=== PATIENT | female | born 1995 | race Two or more races ===

== ENCOUNTER → 2017-09-25 14:51 | Outpatient (CLI) | payer MEDICAID ==
[~2017-09-25 14:51] MED LIST: HYDROCODON-ACE1 EAC7 PO; IBUPROFEN600 MG PO; PRENATAL COMPLE1 TAB PO
[2017-09-25 15:48] LABS: APPEARANCE CLEAR (CLEAR); BILIRUBIN NEGATIVE (NEGATIVE); COLOR YELLOW (YELLOW); GLUCOSE NEGATIVE (NEGATIVE); KETONE NEGATIVE (NEGATIVE); NITRITE NEGATIVE (NEGATIVE); PROTEIN NEGATIVE (NEGATIVE); UROBILINOGEN NORMAL (NORMAL)
[2017-09-25 15:49] LABS: BACTERIA MANY /hpf (NONE SEEN); EPITHELIAL CELLS 0-5 /hpf (0-5); MUCUS <1+ /lpf (NONE SEEN); RED CELLS - URINE OCC /hpf (0-5); WHITE CELLS - URINE 0-5 /hpf (0-5)
[2017-12-03 12:01] VITALS: BMI 24.3
== END | disposition home or self-care (01) ==
LOC: D.LDO 14:51
PROVIDERS: Obstetrics & Gynecology
DX: O26.893 Other specified pregnancy related conditions, third trimester (principal); Z3A.33 33 weeks gestation of pregnancy; M54.5 Low back pain; R51 Headache

== ENCOUNTER 2017-11-05 06:57 | Inpatient (IN) | payer MEDICAID ==
[~2017-11-05] VITALS: Ht 160 cm; Wt 70.3 kg
--- NOTE | ~2017-11-05 | DS ---
PATIENT:UMANG HENRY I :[birth year] MEDICAL RECORD: [id number] DISCHARGE SUMMARY ADMISSION DATE: 11/05/17 DISCHARGE DATE: 11/06/17 HISTORY: The patient was admitted on 11/05/2017. A 22-year-old at 39 weeks and 1 day, admitted in active labor. The patient was noted to be O positive, group B strep negative, and rubella immune. PAST MEDICAL HISTORY: The patient reported no significant past medical history. PAST SURGICAL HISTORY: Significant for breast surgery. ALLERGIES: The patient reported no allergies. MEDICATIONS: Included vitamins. FAMILY HISTORY: The patient reported family history significant for parent with cardiovascular disease. SOCIAL HISTORY: The patient reported social history negative times 3. PHYSICAL EXAMINATION: VITAL SIGNS: On initial assessment, vital signs were stable. The patient was afebrile and normotensive. LUNGS: Clear to auscultation. CARDIOVASCULAR: Regular rate and rhythm. PELVIC: Uterus was appropriately sized and appropriately tender. EXTREMITIES: Lower extremities were free of Homans' sign, erythema, or swelling. Admit hemoglobin was found to be 10.2 with platelet count of 368. ASSESSMENT AND PLAN: At that time, term intrauterine , in active labor. Admit AROM when appropriate and Pitocin augmentation as needed. The patient with a category 1 tracing at admission. AROM was performed with clear fluid. The patient progressed to the second stage of labor and then normal spontaneous vaginal delivery. Delivery note is as on the chart. The patient did well overnight on day #0, tolerating p.o. pain meds and general diet, ambulating and voiding freely. On the morning of day #1, the patient continued to do well. Vital signs were stable. The patient was afebrile. Hemoglobin was appropriate. Uterus was infraumbilical and nontender. The patient reported minimal lochia. The patient was discharged home on day #1 with instructions to follow up in 4 weeks. TRANSINT:[id number] Voice Confirmation ID: [id number] DOCUMENT ID: [id number] RIVAS SIFUENTES MD at 1754 CC: [id number] DICTATION DATE: 12/02/171752 MED SURG RN: 12/02/172011 DIS IN 11/06/17 [place] [id number] [place] [id number]
[2017-11-05] MEDS ORDERED: PRENATAL COMPLE1 TAB PO (07:28)
[2017-11-05 07:29] VITALS: BP 114/73; Ht 160 cm; Wt 70.3 kg
[2017-11-05 08:54] LABS: HEMATOCRIT 31.6 % (36.0-48.0); HEMOGLOBIN 10.2 g/dL (12-16); MCH 26.2 pg (26.0-34.0); MCHC 32.3 g/dL (31.0-37.0); MCV 81.2 fL (80.0-100.0); MEAN PLATELET VOLUME 9.6 fL (7.4-10.4); RBC 3.89 10x6/uL (4.00-5.40); RDW 15.4 % (11.5-14.5); WBC 8.3 10x3/uL (4.8-10.8)
[2017-11-05 19:15] VITALS: BP 127/79
[2017-11-06 07:28] LABS: RAPID PLASMA REAGIN Non Reactive (Non Reactive)
[2017-11-06] MEDS ORDERED: HYDROCODON-ACE1 EAC7 PO (10:18)
[2017-11-06] MEDS ORDERED: IBUPROFEN600 MG PO (10:19)
== END 2017-11-06 17:00 | disposition home or self-care (01) | DRG 775 ==
LOC: D.LDO 06:57 → D.LD 07:13
PROVIDERS: Obstetrics & Gynecology
PROC: 10E0XZZ Delivery of Products of Conception, External Approach (ICD-10-PCS; principal; 2017-11-05)
DX: O80 Encounter for full-term uncomplicated delivery (principal); Z3A.39 39 weeks gestation of pregnancy; Z37.0 Single live birth

== ENCOUNTER 2017-12-03 11:57 | Emergency (ER) | payer MEDICAID ==
[~2017-12-03] VITALS: Ht 160 cm; Wt 62.3 kg
[2017-12-03 12:01] VITALS: Ht 160 cm; Wt 62.3 kg
[2017-12-03 12:34] LABS: BASOPHILS 0.3 % (0-2); EOSINOPHILS 1.7 % (0-7); HEMATOCRIT 33.6 % (36.0-48.0); HEMOGLOBIN 10.8 g/dL (12-16); IMMATURE GRANULOCYTES 0.2 % (0-5); LYMPHOCYTES 19.9 % (15-50); MCH 25.9 pg (26.0-34.0); MCHC 32.1 g/dL (31.0-37.0); MCV 80.6 fL (80.0-100.0); MEAN PLATELET VOLUME 10.3 fL (7.4-10.4); MONOCYTES 7.8 % (2-11); NEUTROPHILS 70.1 % (40-80); PLATELET COUNT 307 10x3/uL (130-400); RBC 4.17 10x6/uL (4.00-5.40); RDW 15.3 % (11.5-14.5); WBC 6.6 10x3/uL (4.8-10.8)
[2017-12-03 12:49] LABS: ALBUMIN 3.4 g/dL (3.4-5.0); ALKALINE PHOSPHATASE 107 U/L (46-116); ALT (SGPT) 19 U/L (10-68); BILIRUBIN - TOTAL 0.27 mg/dL (0.2-1.3); CALC OSMOLALITY 280 mosm/kg (275-300); CALCIUM 8.8 mg/dL (8.5-10.1); CARBON DIOXIDE 29.3 mmol/L (21.0-32.0); CHLORIDE - SERUM 106 mmol/L (98-107); CREATININE - SERUM 0.6 mg/dL (0.6-1.3); GLUCOSE 97 mg/dL (74-106); POTASSIUM - SERUM 3.7 mmol/L (3.5-5.1); PROTEIN - SERUM 7.6 g/dL (6.4-8.2); SODIUM 142 mmol/L (136-145); UREA NITROGEN 6 mg/dL (7-18); eGFR NON AFRICAN AMERICAN > 90 mL/min (90-120)
[2017-12-03 14:45] VITALS: BP 102/65
== END 2017-12-03 14:51 | disposition home or self-care (01) ==
LOC: D.ER 11:57
PROVIDERS: Family Medicine
DX: F53 Mental and behavioral disorders associated with the puerperium, not elsewhere classified (principal)

== ENCOUNTER 2019-02-21 12:34 | Emergency (ER) | payer MEDICAID ==
[~2019-02-21] VITALS: Ht 160 cm; Wt 59.1 kg
[2019-02-21 12:43] VITALS: Ht 160 cm; Wt 59.1 kg
[2019-02-21 13:27] LABS: APPEARANCE SL CLDY (CLEAR); BILIRUBIN NEGATIVE (NEGATIVE); COLOR YELLOW (YELLOW); GLUCOSE NEGATIVE (NEGATIVE); KETONE MODERATE mg/dL (NEGATIVE); NITRITE NEGATIVE (NEGATIVE); PROTEIN NEGATIVE (NEGATIVE); SPECIFIC GRAVITY 1.015 (1.005-1.020)
[2019-02-21 13:28] LABS: BACTERIA MODERATE /hpf (NEGATIVE); EPITHELIAL CELLS 0-5 /hpf (0-5); MUCUS <1+ /lpf (NONE SEEN); RED CELLS - URINE 0-5 /hpf (0-5)
[2019-02-21 13:46] LABS: BASOPHILS 0.1 % (0-2); EOSINOPHILS 0.2 % (0-7); HEMATOCRIT 34.2 % (36.0-48.0); HEMOGLOBIN 11.1 g/dL (12-16); IMMATURE GRANULOCYTES 0.2 % (0-5); LYMPHOCYTES 8.7 % (15-50); MCH 27.5 pg (26.0-34.0); MCHC 32.5 g/dL (31.0-37.0); MCV 84.9 fL (80.0-100.0); MONOCYTES 4.9 % (2-11); NEUTROPHILS 85.9 % (40-80); PLATELET COUNT 291 10x3/uL (130-400); RBC 4.03 10x6/uL (4.00-5.40); RDW 13.9 % (11.5-14.5); WBC 8.5 10x3/uL (4.8-10.8)
[2019-02-21 13:48] LABS: CALC OSMOLALITY 269 mosm/kg (275-300); CALCIUM 8.2 mg/dL (8.5-10.1); CARBON DIOXIDE 26.3 mmol/L (21.0-32.0); CHLORIDE - SERUM 102 mmol/L (98-107); CREATININE - SERUM 0.5 mg/dL (0.6-1.3); GLUCOSE 101 mg/dL (74-106); POTASSIUM - SERUM 3.6 mmol/L (3.5-5.1); SODIUM 136 mmol/L (136-145); UREA NITROGEN 7 mg/dL (7-18); eGFR NON AFRICAN AMERICAN > 90 mL/min (90-120)
[2019-02-21 13:49] LABS: HCG SERUM POSITIVE (NEGATIVE)
[2019-02-21 13:55] LABS: ALBUMIN 2.9 g/dL (3.4-5.0); ALKALINE PHOSPHATASE 69 U/L (46-116); ALT (SGPT) 20 U/L (10-68); LIPASE 163 U/L (73-393); PROTEIN - SERUM 7.1 g/dL (6.4-8.2)
[2019-02-21 14:10] LABS: UDS - AMPHET NEGATIVE QUAL (NEGATIVE); UDS - BARB NEGATIVE QUAL (NEGATIVE); UDS - BENZO NEGATIVE QUAL (NEGATIVE); UDS - COCAINE NEGATIVE QUAL (NEGATIVE); UDS - OPIATE POSITIVE QUAL (NEGATIVE); UDS - PCP NEGATIVE QUAL (NEGATIVE); UDS - THC NEGATIVE QUAL (NEGATIVE)
[2019-02-21] MEDS ORDERED: MACROBID100 MG PO (15:53)
[2019-02-21 15:56] VITALS: BP 115/68
[2019-03-01 18:07] LABS: AEROBE ID Final report (())
== END 2019-02-21 15:57 | disposition home or self-care (01) ==
LOC: D.ER 12:34
PROVIDERS: Family Medicine
DX: O23.40 Unspecified infection of urinary tract in pregnancy, unspecified trimester (principal)

== ENCOUNTER 2019-07-06 19:57 | Inpatient (IN) | payer MEDICAID ==
[~2019-07-06] VITALS: Ht 160 cm; Wt 71.7 kg
[~2019-07-06 19:57] MED LIST changes: +MACROBID100 MG PO
[2019-07-06 21:30] VITALS: BP 132/81; Ht 160 cm; Wt 71.7 kg
[2019-07-06 22:05] LABS: MCV 74.2 fL (80.0-100.0); MEAN PLATELET VOLUME 10.6 fL (7.4-10.4); RBC 3.91 10x6/uL (4.00-5.40); RDW 15.2 % (11.5-14.5)
[2019-07-06 22:07] LABS: BILIRUBIN NEGATIVE (NEGATIVE); GLUCOSE NEGATIVE (NEGATIVE); KETONE NEGATIVE (NEGATIVE); NITRITE NEGATIVE (NEGATIVE); UROBILINOGEN NORMAL (NORMAL)
--- NOTE | 2019-07-07 12:55 | NUR ---
TO ROOM FOR POST STAY, ORIENTED TO ROOM, CALL LIGHT WITHIN REACH, LUNCH TRAY GIVEN. INFORMED WILL BE BACK SOON FOR ASSESSMENT AND VITAL SIGNS. NAT[facility] C[facility] SUPPLIES PLACED IN BATHROOM
[2019-07-07 13:33] VITALS: BP 128/81
--- NOTE | 2019-07-07 14:49 | NUR ---
sitting up in bed, resting quietly, holding infant, pt teaching on bottle feeding, denies having been up to br since transfer, 50% regular diet consumed, fundus firm, u/-2
--- NOTE | 2019-07-07 15:38 | NUR ---
PT VASCULAR TECHNICIAN LIGHT. C/O ABDOMINAL CRAMPING OF "4" ON 0-10 PAIN SCALE. TORADOL 10 MG GIVEN PO ORDERED. PT INSTRUCTED ON MED. VERBALIZES UNDERSTANDING. PT STATES VOIDED SECOND TIME. UNMEASURED AMOUNT NOTED.
--- NOTE | 2019-07-07 16:31 | NUR ---
feeling relief from cramping, sitting up in bed holding infant, fundus firm. lochia small. no needs expressed
--- NOTE | 2019-07-07 17:54 | NUR ---
restinq quietly in room, cousin at bedside, no needs voiced at this time
--- NOTE | 2019-07-07 19:50 | NUR ---
PT FEEDING INFANT AT THIS TIME, INFORMED PT THAT I WILL COME BACK SHORTLY THEN TO DO ASSESSMENT, PT VERBALIZES UNDERSTANDING, DENIES NEEDS OR PAIN AT THIS ITME, FRIEND AT BEDSIDE
[2019-07-07 20:39] VITALS: BP 142/84
--- NOTE | 2019-07-07 20:39 | NUR ---
ASSESSMENT PER FLOW SHEET, VS OBTAINED, SALINE LOCK IN RIGHT HAND INTACT WITH NO REDNESS OR EDEMA, COVERED SALINE LOCK FOR PT TO TAKE SHOWER AFTER ASSESSMENT, FF, ML, U/2, PT REPORTS FLATUS, NO BM, VOIDING WITH NO DIFFICULTY, AND SCANT VAG BLEEDING NOTED WITH NO CLOTS, PT RATES CRAMPING -11/06, WILL ADM TORADOL WHEN DUE, PT INST ON AND REPORTS USING NATALIYA CARE INST EARLIER, TOWELS AND WASH CLOTHS PROVIDED, PT INST TO USE CALL LIGHT IN BR FOR ANY ASSISTANCE, VERBALIZES UNDERSTANDING, DENIES FURTHER NEEDS AT THIS TIME
--- NOTE | 2019-07-07 21:45 | NUR ---
PT IN BED TALKING ON CELL PHONE, ADM TORADOL PO PER MD ORDERS, SEE EMAR, PT DENIES FURTHER NEEDS, BED IN LOW POSITION, SIDE RAILS X 2, CALL LIGHT IN REACH
--- NOTE | 2019-07-07 22:33 | NUR ---
PT BOTTLE FEEDING , RATES CRAMPING 3-08/07, STATES "IT'S GETTING BETTER", PT REQUESTED AND SERVED DR BARNES, DENIES FURTHER NEEDS, BED IN LOW POSITION, SIDE RAILS X 2, CALL LIGHT IN REACH
--- NOTE | 2019-07-08 00:21 | NUR ---
PT RESTING WITH EYES CLOSED, RESP QUIET, NO DISTRESS NOTED, LEFT UNDISTURBED AT THIS TIME
--- NOTE | 2019-07-08 00:29 | NUR ---
PT PLANT TECH LIGHT, PT C/O CRAMPING, ADM TYLENOL PO PER MD ORDERS, SEE EMAR, PT REQUESTED AND PROVIDED WARM BLANKET, DENIES FURTHER NEEDS AT THIS TIME
--- NOTE | 2019-07-08 01:30 | NUR ---
PT RESTING WITH EYES CLOSED, RESP QUIET, NO DISTRESS NOTED, LEFT UNDISTURBED AT THIS TIME
--- NOTE | 2019-07-08 03:21 | NUR ---
PT RESTING WITH EYES CLOSED, RESP QUIET, NO DISTRESS NOTED, LEFT UNDISTURBED AT THIS TIME
--- NOTE | 2019-07-08 05:24 | NUR ---
PT RESTING WITH EYES CLOSED, RESP QUIET, NO DISTRESS NOTED, LEFT UNDISTURBED AT THIS TIME
[2019-07-08 06:21] LABS: BASOPHILS 0.2 % (0-2); EOSINOPHILS 0.3 % (0-7); HEMATOCRIT 29.9 % (36.0-48.0); HEMOGLOBIN 9.2 g/dL (12-16); IMMATURE GRANULOCYTES 0.3 % (0-5); LYMPHOCYTES 23.1 % (15-50); MCH 22.8 pg (26.0-34.0); MCHC 30.8 g/dL (31.0-37.0); MONOCYTES 5.8 % (2-11); NEUTROPHILS 70.3 % (40-80); PLATELET COUNT 295 10x3/uL (130-400); RBC 4.04 10x6/uL (4.00-5.40); RDW 15.3 % (11.5-14.5); WBC 8.7 10x3/uL (4.8-10.8)
[2019-07-08 07:04] VITALS: BP 108/70
[2019-07-08 07:13] LABS: RAPID PLASMA REAGIN Non Reactive (Non Reactive)
--- NOTE | 2019-07-08 07:15 | NUR ---
ASSESSMENT DONE- SITTING UP IN BED HOLDING INFANT. VERBAL REWSPONSES APPRO TO QUESTIONS. BEARD AT WILL. DENIES NEEDS. ICE WATER GIVEN. FUNDUS U2/FIRM. SCANT LOCHIA NOTED ON PAD.
--- NOTE | 2019-07-08 07:16 | NUR ---
REQUESTING IV SALINE LOCK BE REMOVED.
--- NOTE | 2019-07-08 08:30 | NUR ---
DR ORR HERE TO SEE PT- VERBAL ORDER TO D/C SALINE LOCK RECEIVED.
--- NOTE | 2019-07-08 08:36 | NUR ---
SALINE LOCK REMOVED WITH CATH TIP INTACT- PRESSURE HELD. BANDAIDE ON.
--- NOTE | 2019-07-08 09:40 | NUR ---
PT SITTING UP TALKING WITH VISITORS. DENIES NEEDS.
--- NOTE | 2019-07-08 09:40 | NUR ---
TALKING WITH VISITORS- DENIES NEEDS.
--- NOTE | 2019-07-08 11:09 | NUR ---
REQUESTING WARM BLANKET AND TORADOL FOR PAIN. CO CRAMPING -RATES PAIN A 5 ON SCALE OF 0-10. MED GIVEN.
--- NOTE | 2019-07-08 11:52 | NUR ---
STATES THAT PAIN IS BETTER-RATES PAIN DOWN TO 2 ON SCALE OF 0-10. DENIES OTHER NEEDS.
--- NOTE | 2019-07-08 15:30 | NUR ---
RINGS CALL LIGHT AND ASKING IF SHE CAN BE DISCHARGED HOME THIS AFTERNOON IF BABY IS ABLE TO DISCHARGE. STATES THAT SHE WANTS TO GO HOME IF POSSIBLE. WILL INFORM DR ORR.
--- NOTE | 2019-07-08 16:17 | NUR ---
DR ORR RETURNS CALL AND STATES THAT HE WILL BE AVAILABLE TO DISCHARGE PT HOME IF CAN GO HOME THIS EVENING.
--- NOTE | 2019-07-08 18:28 | NUR ---
DISCHARGE INST VERBAL AND WRITTEN GIVEN. NO PRESCRIPTIONS GIVEN- BUT WAS INFORMED THAT MAY TAKE MOTRIN DIRECTED ON LABEL FOR PAIN. PFW POST INST GIVEN. SEE ALSO SIGNED DISCHARGE INST SHEET. PT HEALTH SUMMARY GIVEN. PT DENIES ANY QUESTIONS.
--- NOTE | 2019-07-08 19:00 | NUR ---
PT DISCHARGED HOME. TRANSPORTED OFF UNIT VIA W/C PER Jovani DIGGS RN.
--- NOTE | 2019-07-09 17:04 | MORECARE ---
CASE MANAGEMENT DISCHARGE SUMMARY PATIENT: UMANG HENRY I UNIT: [id number] ADM DATE: 07/06/19 AGE: 24 : 97 SEX: F ROOM/BED: D.1257 AUTHOR: OSMANY FLORES PHYSICIAN: REFERRING PHYSICIAN: CHAN ORR MD DATE OF SERVICE: 07/09/19 Discharge Plan Patient Name: UMANG HENRY Facility: [facility]:[place] : 1995 Planned Disposition: Home Anticipated Discharge Date: 07/08/19 Discharge Date: 07/08/2019 Expected LOS: 2 Initial Reviewer: [email or web address] Initial Review Date: 07/06/2019 Generated: 07/09/19 6:04 pm Patient Name: UMANG HENRY Page [phone] at 1704 All edits/amendments must be made on the electronic document DICTATION DATE: 07/09/191703 ADVANCED MANUFACTURING ASSOCIATE: JELANI 07/09/191703 RPT#: [id number] DC DATE:07/08/19 STATUS: DIS IN [facility] [address] [place] [address] END OF REPORT
== END 2019-07-08 19:00 | disposition home or self-care (01) | DRG 807 ==
LOC: D.LD 19:57
PROVIDERS: ADMIT Obstetrics & Gynecology; ATTEND Obstetrics & Gynecology
PROC: 10E0XZZ Delivery of Products of Conception, External Approach (ICD-10-PCS; principal; 2019-07-07)
PROC: 0HQ9XZZ Repair Perineum Skin, External Approach (ICD-10-PCS; 2019-07-07)
DX: O70.0 First degree perineal laceration during delivery (principal); Z37.0 Single live birth; Z3A.39 39 weeks gestation of pregnancy

== ENCOUNTER 2020-07-12 18:37 | Emergency (ER) | payer MEDICAID ==
[~2020-07-12] VITALS: Ht 160 cm; Wt 65.9 kg
[2020-07-12 19:09] VITALS: Ht 160 cm; Wt 65.9 kg
[2020-07-12 20:20] LABS: BASOPHILS 0.5 % (0-2); EOSINOPHILS 0.8 % (0-7); HEMATOCRIT 37.7 % (36.0-48.0); HEMOGLOBIN 12.3 g/dL (12-16); IMMATURE GRANULOCYTES 0.2 % (0-5); LYMPHOCYTES 34.1 % (15-50); MCH 25.6 pg (26.0-34.0); MCHC 32.6 g/dL (31.0-37.0); MCV 78.5 fL (80.0-100.0); MEAN PLATELET VOLUME 9.2 fL (7.4-10.4); MONOCYTES 6.8 % (2-11); NEUTROPHIL ABS# 3.72 10x3/uL (1.56-6.13); NEUTROPHILS 57.6 % (40-80); PLATELET COUNT 330 10x3/uL (130-400); RDW 14.7 % (11.5-14.5); WBC 6.5 10x3/uL (4.8-10.8)
[2020-07-12 20:37] LABS: CALC OSMOLALITY 272 mosm/kg (275-300); CALCIUM 9.1 mg/dL (8.5-10.1); CARBON DIOXIDE 25.8 mmol/L (21.0-32.0); CHLORIDE - SERUM 103 mmol/L (98-107); CREATININE - SERUM 0.7 mg/dL (0.6-1.3); GLUCOSE 92 mg/dL (74-106); POTASSIUM - SERUM 3.2 mmol/L (3.5-5.1); SODIUM 137 mmol/L (136-145); UREA NITROGEN 9 mg/dL (7-18); eGFR NON AFRICAN AMERICAN > 90 mL/min (90-120)
[2020-07-12] MEDS ORDERED: MEDROL DOSE PACK4 MG PO (20:42)
[2020-07-12 20:51] LABS: ALKALINE PHOSPHATASE 62 U/L (30-120); ALT (SGPT) 21 U/L (10-68); BILIRUBIN - TOTAL 0.32 mg/dL (0.2-1.3); PROTEIN - SERUM 7.6 g/dL (6.4-8.2)
[2020-07-12 20:52] LABS: TROPONIN-I < 0.017 ng/mL (0.000-0.060)
[2020-07-12 21:23] VITALS: BP 110/77
== END 2020-07-12 21:24 | disposition home or self-care (01) ==
LOC: D.ER 18:37
PROVIDERS: Family Medicine
DX: R07.89 Other chest pain (principal)